=== PATIENT | male | born 1985 | race Caucasian/White ===

== ENCOUNTER → 2016-07-27 | Outpatient (CLI) | payer OTHER ==
[~2016-07-27] MED LIST: BARIUM SULFATE 135 ML (E-Z HD) PO ONE
--- NOTE | 2016-07-27 15:03 | RADRPT ---
PROCEDURE: Video-fluoroscopy swallowing study. CLINICAL INDICATION: Dysphagia. TECHNIQUE: Fluoroscopic guided video swallowing study was done in conjunction with the speech ther apist. The study was confined to the oral, pharyngeal, and cervical phases of the swallowing mechani sm. 1.7 minutes of fluoroscopy time was used. COMPARISON: No prior study is available for comparison. FINDINGS: There is no evidence of aspiration during the exam. There is transient penetration with nectar-thick liquid and thin liquid. IMPRESSION: 1. Transient penetration during swallowing nectar thick liquid and thin liquid. No aspiration. 2. Please refer to the speech therapist's recommendations for future feedings. RPTAT: QQ .Edgardo Perry MD, MD Date Time Electronically viewed and signed by .Edgardo Perry MD, on 07/27/2016 15:02 .R/
== END | disposition home or self-care (01) ==
LOC: RAD 13:07
PROVIDERS: ATTEND Otolaryngology
DX: R13.10 Dysphagia, unspecified (principal)
CPT/HCPCS: 74230; 92611; Z7610